=== PATIENT | female | born 1970 | race Caucasian/White ===

== ENCOUNTER 2016-07-16 20:11 | Emergency (ER) | payer OTHER ==
[2016-07-16 20:25] VITALS: RESP 18
[2016-07-16 21:12] LABS: Basophils # (A) 0.2 k/uL (0-0.2); Basophils % (A) 1 %; CH 31.4; CHCM 34.2; Eosinophils # (A) 0.1 k/uL (0-0.7); Eosinophils % (A) 1 %; HCT 42.5 % (34.0-46.0); HGB 14.4 gm/dL (11.4-16.0); Luc # (Auto) 0.12; Luc % (Auto) 1; Lymphocytes # (A) 2.2 k/uL (1.0-4.8); Lymphocytes % (A) 19 %; MCH 31.4 pg (25.0-35.0); MCV 92.3 fL (80.0-100.0); Mean Platelet Volume 8.8; Monocytes # (A) 0.4 k/uL (0-1.0); Monocytes % (A) 3 %; Neutrophils # (A) 8.7 k/uL (1.3-7.7); Neutrophils % (A) 75 %; RDW 13.3 % (11.5-15.5); WBC 11.6 k/uL (3.8-10.6); WBC (Perox) 11.99
[2016-07-16 21:14] LABS: Appearance,Urine Clear (Clear); Bilirubin,Urine Negative (Negative); Glucose,Urine (UA) Negative (Negative); Ketones,Urine Negative (Negative); Leukocyte Esterase,Urine Negative (Negative); Nitrite,Urine Negative (Negative); Protein,Urine Negative (Negative); UA Billing (MACRO vs. MICRO) CHEM; Urobilinogen,Urine <2.0 mg/dL (<2.0)
[2016-07-16 21:30] LABS: ALT 22 U/L (9-52); AST 22 U/L (14-36); Alkaline Phosphatase 70 U/L (38-126); Amylase 58 U/L (30-110); Anion Gap 15 mmol/L; Blood Urea Nitrogen 10 mg/dL (7-17); Calcium 10.2 mg/dL (8.4-10.2); Carbon Dioxide 23 mmol/L (22-30); Chloride 102 mmol/L (98-107); Glucose 98 mg/dL (74-99); Non-African American GFR(MDRD) >60 (>60 ml/min/1.73 sqM); Potassium 3.6 mmol/L (3.5-5.1); Sodium 140 mmol/L (137-145); Total Protein 7.9 g/dL (6.3-8.2)
[2016-07-16 21:32] LABS: Specific Gravity,Urine 1.005 (1.001-1.035)
--- NOTE | 2016-07-16 21:35 | ED ---
Abdominal Pain HPI - General Chief Complaint: Abdominal Pain Stated Complaint: Side Pain Time Seen by Provider: 07/16/16 20:59 Source: patient Mode of arrival: ambulatory Limitations: no limitations - History of Present Illness Initial Comments: This patient is a 46-year-old woman who presents to be evaluated for intermittent right flank and right upper quadrant abdominal pains that 1 going on for many months. She states that she was seen a couple times about this at a clinic, having her urine checked. The patient states that she believes that she was seen in either April or May. Patient indicates the pain is sharp , moderate, usually lasts from minutes to a few hours but resolves. She denies any associated symptoms other than having some intermittent vaginal spotting. The patient does have an appointment coming up in early August with ground support equipment mechanic , and states that her last and ecology point was many years ago. Patient denies any nausea or vomiting, change in bowel movements, or any other urinary type symptoms. MD Complaint: abdominal pain -: month(s) Location: RUQ, R flank Radiation: none Severity: moderate Quality: aching Consistency: intermittent Improves With: nothing Worsens With: nothing Associated Symptoms: other (Vaginal spotting) - Related Data Home Medications Medication Instructions Recorded Confirmed Nexium (Unknown Dose) 1 tab PO DAILY PRN 07/16/16 07/16/16 Ranitidine (Unknown Dose) 1 tab PO DAILY PRN 07/16/16 07/16/16 Sodium Bicarbonate (Unknown Dose) 1 tab PO DAILY PRN 07/16/16 07/16/16 Trazodone (Unknown Dose) 1 tab PO DAILY PRN 07/16/16 07/16/16 Allergies Allergy/AdvReac Type Severity Reaction Status Date / Time No Known Allergies Allergy Verified 07/16/16 21:02 Review of Systems ROS Statement: Those systems with pertinent positive or pertinent negative responses have been documented in the HPI. ROS Other: All systems not noted in ROS Statement are negative. Constitutional: Denies: fever, chills Respiratory: Denies: cough, dyspnea Cardiovascular: Denies: chest pain Gastrointestinal: Reports: as per HPI, abdominal pain. Denies: nausea, vomiting , diarrhea, constipation, melena, hematochezia Genitourinary: Reports: as per HPI, abnormal menses. Denies: urgency, dysuria, frequency, hematuria, discharge Musculoskeletal: Denies: back pain Skin: Denies: rash Neurological: Denies: headache, weakness, numbness Past Medical History Past Medical History: No Reported History History of Any Multi-Drug Resistant Organisms: None Reported Past Surgical History: Section Additional Past Surgical History / Comment(s): nasal repair Past Psychological History: Anxiety, Depression Smoking Status: Current every day smoker Past Alcohol Use History: Rare Past Drug Use History: None Reported General Exam Limitations: no limitations General appearance: alert, in no apparent distress Head exam: Present: atraumatic, normocephalic Eye exam: Present: normal appearance. Absent: scleral icterus, conjunctival injection ENT exam: Present: normal oropharynx Neck exam: Present: normal inspection, full ROM Respiratory exam: Present: normal lung sounds bilaterally. Absent: respiratory distress, wheezes, rales, rhonchi, stridor Cardiovascular Exam: Present: regular rate, normal rhythm, normal heart sounds. Absent: systolic murmur, diastolic murmur, rubs, gallop GI/Abdominal exam: Present: soft, tenderness (Mild abdominal tenderness just to the right of the epigastric area. There is no rebound or guarding.), normal bowel sounds. Absent: distended, guarding, rebound, rigid, organomegaly, mass, pulsatile mass, hernia Extremities exam: Present: normal inspection, normal capillary refill. Absent: pedal edema, calf tenderness Back exam: Present: normal inspection. Absent: CVA tenderness (R), CVA tenderness (L) Neurological exam: Present: alert Skin exam: Present: warm, dry, intact, normal color. Absent: rash, cyanosis, diaphoretic, erythema, petechiae, pallor, mottled Course Vital Signs 07/16/16 07/16/16 07/16/16 20:21 22:00 23:48 Temperature 98.2 F Pulse Rate 87 88 78 Respiratory 18 18 18 Rate Blood Pressure 175/74 165/91 124/78 O2 Sat by Pulse 96 96 96 Oximetry Medical Decision Making - Lab Data Result diagrams: 07/16/16 21:04 07/16/16 21:04 Lab Results 07/16/16 07/16/16 07/16/16 Range/Units 21:04 21:04 21:04 WBC 11.6 H (3.8-10.6) k/uL RBC 4.60 (3.80-5.40) m/uL Hgb 14.4 (11.4-16.0) gm/dL Hct 42.5 (34.0-46.0) % MCV 92.3 (80.0-100.0) fL MCH 31.4 (25.0-35.0) pg MCHC 34.0 (31.0-37.0) g/dL RDW 13.3 (11.5-15.5) % Plt Count 272 (150-450) k/uL Neutrophils % 75 % Lymphocytes % 19 % Monocytes % 3 % Eosinophils % 1 % Basophils % 1 % Neutrophils # 8.7 H (1.3-7.7) k/uL Lymphocytes # 2.2 (1.0-4.8) k/uL Monocytes # 0.4 (0-1.0) k/uL Eosinophils # 0.1 (0-0.7) k/uL Basophils # 0.2 (0-0.2) k/uL Sodium 140 (137-145) mmol/L Potassium 3.6 (3.5-5.1) mmol/L Chloride 102 (98-107) mmol/L Carbon Dioxide 23 (22-30) mmol/L Anion Gap 15 mmol/L BUN 10 (7-17) mg/dL Creatinine 0.63 (0.52-1.04) mg/dL Est GFR (MDRD) Af Amer >60 (>60 ml/min/1.73 sqM) Est GFR (MDRD) Non-Af >60 (>60 ml/min/1.73 sqM) Glucose 98 (74-99) mg/dL Calcium 10.2 (8.4-10.2) mg/dL Total Bilirubin 1.0 (0.2-1.3) mg/dL AST 22 (14-36) U/L ALT 22 (9-52) U/L Alkaline Phosphatase 70 (38-126) U/L Total Protein 7.9 (6.3-8.2) g/dL Albumin 4.9 (3.5-5.0) g/dL Amylase 58 (30-110) U/L Lipase 102 (23-300) U/L Urine Color Colorless Urine Appearance Clear (Clear) Urine pH 6.0 (5.0-8.0) Ur Specific [place] 1.005 (1.001-1.035) Urine Protein Negative (Negative) Urine Glucose (UA) Negative (Negative) Urine Ketones Negative (Negative) Urine Blood Negative (Negative) Urine Nitrate Negative (Negative) Urine Bilirubin Negative (Negative) Urine Urobilinogen <2.0 (<2.0) mg/dL Ur Leukocyte Esterase Negative (Negative) Disposition Clinical Impression: Abdominal pain Disposition: HOME SELF-CARE Condition: Fair Instructions: Abdominal Pain (ED) Referrals: Sumeet Porter MD [Primary Care Provider] - 1-2 days
--- NOTE | 2016-07-16 23:54 | US ---
EXAMINATION TYPE: US abdomen limited DATE OF EXAM: 07/16/2016 11:38 PM COMPARISON: NONE CLINICAL HISTORY: Pain, Attention RUQ. EXAM MEASUREMENTS: Liver Length: 15.2 cm Gallbladder Wall: 0.2 cm CBD: 0.4 cm Right Kidney: 12.6 x 4.4 x 5.1 cm TECHNOLOGIST IMPRESSION: Pancreas: Tail obscured by overlying bowel gas, visualized portions wnl Liver: wnl Gallbladder: wnl Evidence for sonographic Mario's sign: No CBD: wnl Right Kidney: No hydronephrosis or masses seen IMPRESSION: Negative right upper quadrant abdominal sonogram. No gallstones or dilated ducts.
--- NOTE | 2016-07-17 01:40 | CT ---
EXAM: CT Abdomen and Pelvis Without Intravenous Contrast. CLINICAL HISTORY: Reason: Pain TECHNIQUE: Axial computed tomography images of the abdomen and pelvis without intravenous contrast. CTDI is 5.7 mGy and DLP is 255.4 mGy-cm COMPARISON: No relevant prior studies available. FINDINGS: Limitations: Absent IV and oral contrast limit evaluation. Lower thorax: Mild bibasilar atelectasis identified. ABDOMEN: Liver: Unremarkable. Gallbladder and bile ducts: Unremarkable. No calcified stones. No ductal dilation. Pancreas: Unremarkable. No ductal dilation. Spleen: Unremarkable. No splenomegaly. Adrenals: Unremarkable. No mass. Kidneys and ureters: There is punctate calcification in the right mid and lower kidney best seen on coronal image. 2 coarse calcification in the lower left kidney. No ureteral calcification or dilatation. Stomach and bowel: Normal appendix. No focal small bowel dilatation. There is a discrete air-filled structure adjacent to the descending portion of the duodenum likely duodenal diverticulum. Few scattered diverticula. Appendix: See above. PELVIS: Bladder: Decompressed urinary bladder. No stones. Reproductive: Retroverted uterus. ABDOMEN and PELVIS: Intraperitoneal space: No free fluid. No free air. Bones/joints: No acute fracture. No dislocation. Soft tissues: Unremarkable. Vasculature: Unremarkable. No abdominal aortic aneurysm. Lymph nodes: Unremarkable. No enlarged lymph nodes. Other findings: Mild retained stool. IMPRESSION: Nonspecific bowel gas pattern with mild retained stool. Mild diverticulosis. No CT evidence for appendicitis or diverticulitis. Bilateral nonobstructing renal calculi.
[2016-07-17] MEDS ORDERED: MAGNESIUM CITRATE 296 ML BOTTLE PO ONE (02:01)
[2016-07-17 02:19] VITALS: BP 142/73; PULSE 77; TEMP 98.1
== END 2016-07-17 02:19 | disposition home or self-care (01) ==
LOC: EC 20:11
DX: R10.13 Epigastric pain (principal); R10.11 Right upper quadrant pain; N92.0 Excessive and frequent menstruation with regular cycle; F17.200 Nicotine dependence, unspecified, uncomplicated
CPT/HCPCS: 36415; 74176; 76705; 80053; 81003; 82150; 83690; 85025; 99284

== ENCOUNTER → 2016-08-28 | Outpatient (CLI) | payer OTHER ==
--- NOTE | 2016-08-28 15:43 | NM ---
EXAMINATION TYPE: NM hepatobiliary w EF DATE OF EXAM: 08/28/2016 3:12 PM COMPARISON: CT abdomen pelvis 17 July 2016 HISTORY: Abdominal pain TECHNIQUE: After the intravenous administration of 5.4 mCi Tc 99m Mebrofenin hepatobiliary scintigrap hy is performed. Immediate images post injection. FINDINGS: There is satisfactory initial accumulation of tracer by the liver. The gallbladder is visualized wit hin 18 minutes. The small bowel activity is noted within 14 minutes. At one hour 8 ounces of oral e nsure plus is given to mimic CCK and gallbladder ejection fraction is calculated at 76 %, in the norm al range. Therefore there is no scintigraphic evidence of cystic or common bile duct obstruction to suggest acute cholecystitis or gallbladder dyskinesia. IMPRESSION: Exam is within normal limits.
== END | disposition home or self-care (01) ==
LOC: RADNMMAIN 13:04
PROVIDERS: ATTEND Family Medicine
DX: R10.9 Unspecified abdominal pain (principal)
CPT/HCPCS: 78226; A9537

== ENCOUNTER → 2017-02-05 | Outpatient (CLI) | payer OTHER ==
--- NOTE | 2017-02-06 11:22 | MM ---
Reason for exam: screening (asymptomatic). Last mammogram was performed 3 years and 3 months ago. History: Family history of breast cancer in grandmother at age 20 and breast cancer in aunt at age 40. Physical Findings: A clinical breast exam by your physician is recommended on an annual basis and results should be correlated with mammographic findings. MG 3D Screening Mammo W/Cad Bilateral CC and MLO view(s) were taken. Prior study comparison: November 09, 2013, mammogram. January 26, 2011, mammogram. The breast tissue is heterogeneously dense. This may lower the sensitivity of mammography. There is chronic nodularity bilaterally. There is no dominant lesion. No significant changes when compared with prior studies. ASSESSMENT: Benign, BI-RAD 2 RECOMMENDATION: Routine screening mammogram of both breasts in 1 year.
== END | disposition home or self-care (01) ==
LOC: RADMAMWWP 11:21
PROVIDERS: ATTEND Family Medicine
DX: Z12.31 Encounter for screening mammogram for malignant neoplasm of breast (principal)
CPT/HCPCS: 77063; G0202

== ENCOUNTER → 2017-07-16 | Outpatient (CLI) | payer OTHER ==
--- NOTE | 2017-07-17 08:19 | US ---
EXAMINATION TYPE: US pelvic complete DATE OF EXAM: 07/16/2017 COMPARISON: NONE CLINICAL HISTORY: R10.2 Pelvic Perineal Pain. Pelvic pain TECHNIQUE: Transabdominal (TA). Transabdominal sonographic images of the pelvis were acquired. Date of LMP: 06/13/2017 EXAM MEASUREMENTS: Uterus: 11.4 x 5.3 x 5.7 cm Endometrial Stripe: 0.7 cm Right Ovary: 2.9 x 1.5 x 2.0 cm Left Ovary: 2.3 x 1.4 x 1.8 cm 1. Uterus: Anteverted Nabothian cysts seen. 2. Endometrium: wnl 3. Right Ovary: wnl 4. Left Ovary: wnl 5. Bilateral Adnexa: wnl 6. Posterior cul-de-sac: wnl IMPRESSION: No significant abnormality is evident.
== END | disposition home or self-care (01) ==
LOC: RADUSMAIN 17:48
PROVIDERS: ATTEND Physician Assistant
DX: R10.2 Pelvic and perineal pain (principal)
CPT/HCPCS: 76856

== ENCOUNTER → 2018-05-15 | Outpatient (CLI) | payer OTHER ==
--- NOTE | 2018-05-16 09:03 | XR ---
EXAMINATION TYPE: XR chest 2V DATE OF EXAM: 05/15/2018 COMPARISON: 12/21/2015 TECHNIQUE: PA and lateral views submitted. HISTORY: Cough FINDINGS: The lungs are clear and there is no pneumothorax, pleural effusion, or focal pneumonia. IMPRESSION: 1. No acute process.
== END | disposition home or self-care (01) ==
LOC: RADXRMAIN 15:54
PROVIDERS: ATTEND Physician Assistant
DX: F17.200 Nicotine dependence, unspecified, uncomplicated (principal)
CPT/HCPCS: 71046

== ENCOUNTER 2018-06-23 11:18 | Emergency (ER) | payer OTHER ==
[2018-06-23 11:37] VITALS: TEMP 99
[2018-06-23] MEDS ORDERED: PANTOPRAZOLE 40 MG/10 ML VIAL IVP STA (12:12)
[2018-06-23] MEDS ORDERED: KETOROLAC 30 MG/ML 1 ML VIAL IVP STA (12:12)
[2018-06-23] MEDS ORDERED: SODIUM CHLORIDE 0.9% 1,000 ML IV STA ×2 (12:12)
[2018-06-23] MEDS ORDERED: ONDANSETRON 4 MG/2 ML VIAL IVP STA (12:12)
[2018-06-23] MEDS ORDERED: MORPHINE SULFATE 4 MG/ML SYRINGE IVP STA ×2 (12:12→15:18)
[2018-06-23 13:10] VITALS: RESP 16
[2018-06-23 13:43] LABS: Basophils % (A) 0 %; Eosinophils % (A) 0 %; HCT 44.7 % (34.0-46.0); HGB 14.9 gm/dL (11.4-16.0); Lymphocytes # (A) 1.3 k/uL (1.0-4.8); Lymphocytes % (A) 12 %; MCH 31.5 pg (25.0-35.0); MCHC 33.4 g/dL (31.0-37.0); MCV 94.3 fL (80.0-100.0); Mean Platelet Volume 8.6; Monocytes # (A) 0.3 k/uL (0-1.0); Monocytes % (A) 2 %; Neutrophils # (A) 9.6 k/uL (1.3-7.7); Neutrophils % (A) 85 %; Platelet Count 272 k/uL (150-450); RBC 4.74 m/uL (3.80-5.40); RDW 13.6 % (11.5-15.5); WBC 11.3 k/uL (3.8-10.6)
[2018-06-23 13:57] LABS: ALT 27 U/L (9-52); AST 24 U/L (14-36); Albumin 5.1 g/dL (3.5-5.0); Alkaline Phosphatase 75 U/L (38-126); Amylase 62 U/L (30-110); Anion Gap 11 mmol/L; Blood Urea Nitrogen 9 mg/dL (7-17); Calcium 10.5 mg/dL (8.4-10.2); Carbon Dioxide 24 mmol/L (22-30); Chloride 107 mmol/L (98-107); Glucose 97 mg/dL (74-99); Lipase 108 U/L (23-300); Potassium 4.4 mmol/L (3.5-5.1); Sodium 142 mmol/L (137-145); Total Bilirubin 0.7 mg/dL (0.2-1.3); Total Protein 8.5 g/dL (6.3-8.2)
--- NOTE | 2018-06-23 13:58 | ED ---
Abdominal Pain HPI - General Chief Complaint: Abdominal Pain Stated Complaint: Vaginal Bleeding, Abd Pain Time Seen by Provider: 06/23/18 11:42 Source: patient, RN notes reviewed, old records reviewed Mode of arrival: ambulatory Limitations: no limitations - History of Present Illness Initial Comments: 48-year-old female comes emergency Department multiple complaints. She states that she's had distention, concern for vaginal bleeding. Patient states that she was sent by medics breath. She is having chronic GI issues for quite some time. She denies associated back pain. She reports pain intermittently over RUQ. Patient has normal bowel movements. - Related Data Home Medications Medication Instructions Recorded Confirmed Polyethylene Glycol 3350 [Miralax] 17 gram PO DAILY 06/23/18 06/23/18 Allergies Allergy/AdvReac Type Severity Reaction Status Date / Time No Known Allergies Allergy Verified 06/23/18 12:29 Review of Systems ROS Statement: Those systems with pertinent positive or pertinent negative responses have been documented in the HPI. ROS Other: All systems not noted in ROS Statement are negative. Past Medical History Past Medical History: No Reported History History of Any Multi-Drug Resistant Organisms: None Reported Past Surgical History: Section Additional Past Surgical History / Comment(s): nasal repair Past Psychological History: Anxiety, Depression Smoking Status: Current every day smoker Past Alcohol Use History: Rare Past Drug Use History: None Reported General Exam - General Exam Comments Initial Comments: This is a 48 year old female, no distress. Limitations: no limitations General appearance: alert, in no apparent distress Head exam: Present: atraumatic, normocephalic, normal inspection Eye exam: Present: normal appearance, PERRL, EOMI. Absent: scleral icterus, conjunctival injection, periorbital swelling ENT exam: Present: normal exam, mucous membranes moist Neck exam: Present: normal inspection. Absent: tenderness, meningismus, lymphadenopathy Respiratory exam: Present: normal lung sounds bilaterally. Absent: respiratory distress, wheezes, rales, rhonchi, stridor Cardiovascular Exam: Present: regular rate, normal rhythm, normal heart sounds. Absent: systolic murmur, diastolic murmur, rubs, gallop, clicks GI/Abdominal exam: Present: soft, normal bowel sounds. Absent: distended, tenderness, guarding, rebound, rigid Extremities exam: Present: normal inspection, full ROM, normal capillary refill. Absent: tenderness, pedal edema, joint swelling, calf tenderness Back exam: Present: normal inspection Neurological exam: Present: alert, oriented X3, CN II-XII intact Psychiatric exam: Present: normal affect, normal mood Skin exam: Present: warm, dry, intact, normal color. Absent: rash Course Vital Signs 06/23/18 06/23/18 06/23/18 11:33 13:06 13:09 Temperature 99 F Pulse Rate 87 81 Respiratory 18 16 Rate Blood Pressure 152/90 159/91 O2 Sat by Pulse 97 100 100 Oximetry 06/23/18 06/23/18 06/23/18 13:30 14:00 14:30 Temperature Pulse Rate 86 78 89 Respiratory Rate Blood Pressure 159/91 129/90 128/99 O2 Sat by Pulse 97 96 99 Oximetry 06/23/18 16:37 Temperature Pulse Rate 86 Respiratory 16 Rate Blood Pressure 130/91 O2 Sat by Pulse 100 Oximetry Medical Decision Making - Medical Decision Making Patient is a 48 year old female with multiple complaints, including prolonged vaginal bleeding, intermittent RUQ abdominal pain. She appears quite anxious on initial exam. Patient has normal lab work, including hemoglobin. Pelvic exam shows vaginal bleeding. No tederness. She does follow up with obgyn. She has appt to follow up with PCP next week. Discussed RUQ pain may be related to biliary colic. Patient advised to get HIDA scan. Discussed close follow with PCP. - Lab Data Result diagrams: 06/23/18 12:20 06/23/18 12:20 Lab Results 06/23/18 06/23/18 06/23/18 Range/Units 12:20 12:20 12:20 WBC 11.3 H (3.8-10.6) k/uL RBC 4.74 (3.80-5.40) m/uL Hgb 14.9 (11.4-16.0) gm/dL Hct 44.7 (34.0-46.0) % MCV 94.3 (80.0-100.0) fL MCH 31.5 (25.0-35.0) pg MCHC 33.4 (31.0-37.0) g/dL RDW 13.6 (11.5-15.5) % Plt Count 272 (150-450) k/uL Neutrophils % 85 % Lymphocytes % 12 % Monocytes % 2 % Eosinophils % 0 % Basophils % 0 % Neutrophils # 9.6 H (1.3-7.7) k/uL Lymphocytes # 1.3 (1.0-4.8) k/uL Monocytes # 0.3 (0-1.0) k/uL Eosinophils # 0.0 (0-0.7) k/uL Basophils # 0.0 (0-0.2) k/uL PT 9.4 (9.0-12.0) sec INR 0.9 (<1.2) APTT 20.2 L (22.0-30.0) sec Sodium 142 (137-145) mmol/L Potassium 4.4 (3.5-5.1) mmol/L Chloride 107 (98-107) mmol/L Carbon Dioxide 24 (22-30) mmol/L Anion Gap 11 mmol/L BUN 9 (7-17) mg/dL Creatinine 0.52 (0.52-1.04) mg/dL Est GFR (CKD-EPI)AfAm >90 (>60 ml/min/1.73 sqM) Est GFR (CKD-EPI)NonAf >90 (>60 ml/min/1.73 sqM) Glucose 97 (74-99) mg/dL Calcium 10.5 H (8.4-10.2) mg/dL Total Bilirubin 0.7 (0.2-1.3) mg/dL AST 24 (14-36) U/L ALT 27 (9-52) U/L Alkaline Phosphatase 75 (38-126) U/L Total Protein 8.5 H (6.3-8.2) g/dL Albumin 5.1 H (3.5-5.0) g/dL Amylase 62 (30-110) U/L Lipase 108 (23-300) U/L Urine Color Urine Appearance (Clear) Urine pH (5.0-8.0) Ur Specific [place] (1.001-1.035) Urine Protein (Negative) Urine Glucose (UA) (Negative) Urine Ketones (Negative) Urine Blood (Negative) Urine Nitrite (Negative) Urine Bilirubin (Negative) Urine Urobilinogen (<2.0) mg/dL Ur Leukocyte Esterase (Negative) Urine RBC (0-5) /hpf Urine WBC (0-5) /hpf Ur Squamous Epith Cells (0-4) /hpf Urine Bacteria (None) /hpf Chlamydia Source Chlamydia DNA (PCR) (Neg,Equiv) N. gonorrhoeae Source N.gonorrhoeae DNA Probe (Neg,Equiv) Trichomonas Ag (Rapid) (Negative) 06/23/18 06/23/18 06/23/18 Range/Units 12:20 16:38 16:38 WBC (3.8-10.6) k/uL RBC (3.80-5.40) m/uL Hgb (11.4-16.0) gm/dL Hct (34.0-46.0) % MCV (80.0-100.0) fL MCH (25.0-35.0) pg MCHC (31.0-37.0) g/dL RDW (11.5-15.5) % Plt Count (150-450) k/uL Neutrophils % % Lymphocytes % % Monocytes % % Eosinophils % % Basophils % % Neutrophils # (1.3-7.7) k/uL Lymphocytes # (1.0-4.8) k/uL Monocytes # (0-1.0) k/uL Eosinophils # (0-0.7) k/uL Basophils # (0-0.2) k/uL PT (9.0-12.0) sec INR (<1.2) APTT (22.0-30.0) sec Sodium (137-145) mmol/L Potassium (3.5-5.1) mmol/L Chloride (98-107) mmol/L Carbon Dioxide (22-30) mmol/L Anion Gap mmol/L BUN (7-17) mg/dL Creatinine (0.52-1.04) mg/dL Est GFR (CKD-EPI)AfAm (>60 ml/min/1.73 sqM) Est GFR (CKD-EPI)NonAf (>60 ml/min/1.73 sqM) Glucose (74-99) mg/dL Calcium (8.4-10.2) mg/dL Total Bilirubin (0.2-1.3) mg/dL AST (14-36) U/L ALT (9-52) U/L Alkaline Phosphatase (38-126) U/L Total Protein (6.3-8.2) g/dL Albumin (3.5-5.0) g/dL Amylase (30-110) U/L Lipase (23-300) U/L Urine Color Yellow Urine Appearance Clear (Clear) Urine pH 5.5 (5.0-8.0) Ur Specific [place] 1.004 (1.001-1.035) Urine Protein Trace H (Negative) Urine Glucose (UA) Negative (Negative) Urine Ketones Negative (Negative) Urine Blood Large H (Negative) Urine Nitrite Negative (Negative) Urine Bilirubin Negative (Negative) Urine Urobilinogen <2.0 (<2.0) mg/dL Ur Leukocyte Esterase Trace H (Negative) Urine RBC 20 H (0-5) /hpf Urine WBC 1 (0-5) /hpf Ur Squamous Epith Cells 1 (0-4) /hpf Urine Bacteria Occasional H (None) /hpf Chlamydia Source Vagina Chlamydia DNA (PCR) Negative (Neg,Equiv) N. gonorrhoeae Source Vagina N.gonorrhoeae DNA Probe Negative (Neg,Equiv) Trichomonas Ag (Rapid) (Negative) 06/23/18 Range/Units 16:38 WBC (3.8-10.6) k/uL RBC (3.80-5.40) m/uL Hgb (11.4-16.0) gm/dL Hct (34.0-46.0) % MCV (80.0-100.0) fL MCH (25.0-35.0) pg MCHC (31.0-37.0) g/dL RDW (11.5-15.5) % Plt Count (150-450) k/uL Neutrophils % % Lymphocytes % % Monocytes % % Eosinophils % % Basophils % % Neutrophils # (1.3-7.7) k/uL Lymphocytes # (1.0-4.8) k/uL Monocytes # (0-1.0) k/uL Eosinophils # (0-0.7) k/uL Basophils # (0-0.2) k/uL PT (9.0-12.0) sec INR (<1.2) APTT (22.0-30.0) sec Sodium (137-145) mmol/L Potassium (3.5-5.1) mmol/L Chloride (98-107) mmol/L Carbon Dioxide (22-30) mmol/L Anion Gap mmol/L BUN (7-17) mg/dL Creatinine (0.52-1.04) mg/dL Est GFR (CKD-EPI)AfAm (>60 ml/min/1.73 sqM) Est GFR (CKD-EPI)NonAf (>60 ml/min/1.73 sqM) Glucose (74-99) mg/dL Calcium (8.4-10.2) mg/dL Total Bilirubin (0.2-1.3) mg/dL AST (14-36) U/L ALT (9-52) U/L Alkaline Phosphatase (38-126) U/L Total Protein (6.3-8.2) g/dL Albumin (3.5-5.0) g/dL Amylase (30-110) U/L Lipase (23-300) U/L Urine Color Urine Appearance (Clear) Urine pH (5.0-8.0) Ur Specific [place] (1.001-1.035) Urine Protein (Negative) Urine Glucose (UA) (Negative) Urine Ketones (Negative) Urine Blood (Negative) Urine Nitrite (Negative) Urine Bilirubin (Negative) Urine Urobilinogen (<2.0) mg/dL Ur Leukocyte Esterase (Negative) Urine RBC (0-5) /hpf Urine WBC (0-5) /hpf Ur Squamous Epith Cells (0-4) /hpf Urine Bacteria (None) /hpf Chlamydia Source Chlamydia DNA (PCR) (Neg,Equiv) N. gonorrhoeae Source N.gonorrhoeae DNA Probe (Neg,Equiv) Trichomonas Ag (Rapid) Negative (Negative) - Radiology Data Radiology results: report reviewed CT shows evidence of prominece cervix, correlate clinically. Disposition Clinical Impression: Dysfunctional uterine bleeding, Biliary colic Disposition: HOME SELF-CARE Condition: Good Instructions (If sedation given, give patient instructions): Dysfunctional Uterine Bleeding (ED), Biliary Colic (ED) Additional Instructions: Patient is advised to have close follow-up with primary care physician. Patient should return to the emergency department if any alarming signs or symptoms occur. Is patient prescribed a controlled substance at d/c from ED?: No Referrals: None,Stated [Primary Care Provider] - 1-2 days Jean-Pierre Fair MD [STAFF PHYSICIAN] - 1-2 days Vanessa Quintero MD [STAFF PHYSICIAN] - 1-2 days Israel Jaimes MD [STAFF PHYSICIAN] - 1-2 days Time of Disposition: 16:06
[2018-06-23 14:01] LABS: INR 0.9 (<1.2); Prothrombin Time 9.4 sec (9.0-12.0)
[2018-06-23 14:15] LABS: Appearance,Urine Clear (Clear); Bacteria,Urine Occasional /hpf; Bilirubin,Urine Negative (Negative); Blood,Urine Large (Negative); Color,Urine Yellow; Glucose,Urine (UA) Negative (Negative); Ketones,Urine Negative (Negative); Leukocyte Esterase,Urine Trace (Negative); Nitrite,Urine Negative (Negative); PH, Urine 5.5 (5.0-8.0); Protein,Urine Trace (Negative); RBC,Urine 20 /hpf (0-5); Specific Gravity,Urine 1.004 (1.001-1.035); Squamous Epithelial Cell,Urine 1 /hpf (0-4); Urobilinogen,Urine <2.0 mg/dL (<2.0); WBC,Urine 1 /hpf (0-5)
[2018-06-23 14:16] LABS: Partial Thromboplastin Time 20.2 sec (22.0-30.0)
[2018-06-23] MEDS ORDERED: LORazepam 2 MG/ML INJ IV STA (14:33)
--- NOTE | 2018-06-23 14:45 | CT ---
EXAMINATION TYPE: CT abdomen pelvis w con DATE OF EXAM: 06/23/2018 COMPARISON: 07/17/2016 HISTORY: Generalized pain with vaginal bleeding CT DLP: 660.2 mGycm CONTRAST: CT scan of the abdomen and pelvis is performed without Oral Contrast and with IV Contrast, patient in jected with 100 mL of Isovue 300. FINDINGS: LUNG BASES-: No visible nodule. No infiltrate. LIVER/GB: No calcified gallstones. No space occupying hepatic lesion. Biliary tree is of normal ca liber. PANCREAS: No inflammation. No distinct mass. SPLEEN: No splenic enlargement. No lesion seen. ADRENALS: No nodule. No thickening. KIDNEYS/BLADDER: No hydronephrosis. Nonobstructing left-sided nephrolithiasis. No distinct renal mas s. Urinary bladder grossly unremarkable. BOWEL: Normal appendix. Normal bowel caliber. No inflammation. GENITAL ORGANS: Prominence of the cervix. Correlate clinically. Small left ovarian follicular cyst. LYMPH NODES: No greater than 1cm abdominal or pelvic lymph nodes are appreciated. AORTA: No significant abnormality. OSSEOUS STRUCTURES: No significant abnormality is seen. OTHER: No significant additional abnormality is seen. IMPRESSION: 1. Prominence of the cervix. Correlate clinically. Small left ovarian follicular cyst.
[2018-06-23] MEDS ORDERED: ACET/COD 300 MG/30 MG STARTER PACK 6 TAB BTL PO STA (16:06)
[2018-06-23 16:38] VITALS: BP 130/91; PULSE 86
[2018-06-24 13:48] LABS: N. gonorrhoeae,PCR Negative (Neg,Equiv); Neisseria Source Vagina
[2018-06-24 13:51] LABS: C. trachomatis,PCR Negative (Neg,Equiv); Chlamydia trachomatis Source Vagina
== END 2018-06-23 16:40 | disposition home or self-care (01) ==
LOC: EC 11:18
DX: K80.50 Calculus of bile duct without cholangitis or cholecystitis without obstruction (principal); N93.8 Other specified abnormal uterine and vaginal bleeding; F17.200 Nicotine dependence, unspecified, uncomplicated; Z79.899 Other long term (current) drug therapy; Z53.20 Procedure and treatment not carried out because of patient's decision for unspecified reasons
CPT/HCPCS: 99285; 96374; 96375 ×3; 96376; 96361 ×4; 36415; 80053; 82150; 83690; 85025; 85610; 85730; 81001; 87808; 87491; 87591; 87070; 74177; J2270; J2405; J1885; C9113; Q9967; 87205

== ENCOUNTER → 2018-07-31 | Outpatient (CLI) | payer OTHER ==
--- NOTE | 2018-07-31 09:20 | CT ---
EXAMINATION TYPE: CT sinus wo con DATE OF EXAM: 07/31/2018 COMPARISON: NONE HISTORY: Sinusitis CT DLP: 673.7 mGycm. Automated Exposure Control for Dose Reduction was Utilized. TECHNIQUE: CT scan of the sinuses is performed without contrast, axial images are obtained, coronal r eformatted images are also reviewed. FINDINGS: Periapical lucency is seen surrounding to posterior right maxillary teeth relating to under lying dental disease. No cortical breakthrough is noted. There is rightward nasal septal deviation an d a small 3 mm rightward nasal septal spur. The paranasal sinuses however are well aerated as are the visualized portions of the mastoid air cells other than very scant right maxillary dependent mucosal thickening on the coronal images. There is very mild left inferior nasal turbinate mucosal hypertrop hy. No Pk cells or anastasiia bullosa. Bony orbits are intact. Frontal recesses are patent. Temporomandib ular joints are symmetric. Globes are also symmetric and lenses are in place. Visualized portion of t he brain demonstrates mild cerebral atrophy with sulcal prominence however exam is not optimized for evaluation of intracranial structures. IMPRESSION: 1. There is scant mucosal thickening of the right inferior maxillary sinus otherwise the paranasal si nuses are well aerated. 2. Rightward nasal septal deviation and small 3 mm rightward nasal septal spur. 3. Mild left inferior nasal turbinate mucosal hypertrophy.
== END ==
LOC: RADCTMAIN 08:32
PROVIDERS: ATTEND Otolaryngology
DX: J34.89 Other specified disorders of nose and nasal sinuses (principal); J34.2 Deviated nasal septum; J34.3 Hypertrophy of nasal turbinates
CPT/HCPCS: 70486

== ENCOUNTER → 2018-09-04 | Outpatient (CLI) | payer OTHER ==
--- NOTE | 2018-09-04 10:50 | NM ---
EXAMINATION TYPE: NM hepatobiliary w EF DATE OF EXAM: 09/04/2018 , CT 06/23/2017 COMPARISON: Prior exam dated 08/28/2016 HISTORY: Right upper quadrant pain TECHNIQUE: After the intravenous administration of 4.5 mCi Tc 99m Mebrofenin hepatobiliary scintigrap hy is performed. Immediate images post injection. FINDINGS: There is satisfactory initial accumulation of tracer by the liver, question small photopenic area in the left lobe liver hour there is no corresponding abnormality seen on CT. The gallbladder is visual ized within 30 minutes. The small bowel activity is noted within 18 minutes. At one hour 8 ounces o f oral ensure plus is given to mimic CCK and gallbladder ejection fraction is calculated at 66 %, in the normal range. Therefore there is no scintigraphic evidence of cystic or common bile duct obstruc tion to suggest acute cholecystitis or gallbladder dyskinesia. IMPRESSION: Normal gallbladder ejection fraction. Questionable photopenic region within the left of t he liver without corresponding abnormality seen on CT dated 06/23/2018. Ultrasound liver could be perf ormed for additional evaluation.
== END | disposition home or self-care (01) ==
LOC: RADNMMAIN 07:05
PROVIDERS: ATTEND Family Medicine
DX: R10.11 Right upper quadrant pain (principal)
CPT/HCPCS: 78226; A9537

== ENCOUNTER → 2018-09-19 | Outpatient (CLI) | payer OTHER ==
--- NOTE | 2018-09-19 13:14 | US ---
EXAMINATION TYPE: US abdomen limited DATE OF EXAM: 09/19/2018 COMPARISON: NONE CLINICAL HISTORY: R94.5 Abn liver function. EXAM MEASUREMENTS: Liver Length: 13.9 cm Gallbladder Wall: 0.2 cm CBD: 0.5 cm Right Kidney: 11.6 x 3.7 x 4.6 cm Pancreas: partially obscured by bowel gas, portions visualized wnl Liver: wnl Gallbladder: wnl Evidence for sonographic Mario's sign: no CBD: wnl Right Kidney: wnl IMPRESSION: No distinct abnormality seen.
== END | disposition home or self-care (01) ==
LOC: RADUSWWP 12:38
PROVIDERS: ATTEND Family Medicine
DX: R94.5 Abnormal results of liver function studies (principal)
CPT/HCPCS: 76705

== ENCOUNTER → 2019-03-26 | Outpatient (CLI) | payer BC ==
--- NOTE | 2019-03-27 07:00 | US ---
EXAMINATION TYPE: US thyroid st tissue head/neck DATE OF EXAM: 03/26/2019 COMPARISON: US 01/05/2014 CLINICAL HISTORY: E07.9 Disorder of Thyroid. Disorder of thyroid gland. GLAND SIZE: Right Lobe: 5.2 x 1.5 x 1.7 cm Overall Parenchyma: homogenous Left Lobe: 5.1 x 1.6 x 1.6 cm Overall Parenchyma: homogeneous Isthmus Thickness: 0.26 cm NODULES RIGHT: # of nodules measured on right: 1 1. 0.5 X 0.5 x 0.3 cm hypoechoic cystic nodule at the lower pole with well-defined margins. This n odule is wider than tall and shows peripheral vascularity. Prior size: none LEFT: # of nodules measured on left: 1 1. 0.4 X 0.5 x 0.2 cm hypoechoic solid nodule at the mid pole with poorly defined margins. This no dule is wider than tall and shows intranodular vascularity. Prior size: none ISTHMUS: # of nodules measured in the isthmus: 1 1. 0.9 X 0.6 x 0.3 cm hypoechoic solid nodule. This nodule is wider than tall and shows peripheral vascularity. Prior size: none Bilateral neck scanned. Neurologically normal lymph node seen lateral to right thyroid lobe measurin.4 x 0.5 x 0.3 cm. Morphologically normal lymph node seen lateral to left thyroid lobe measurin.1 x 0.6 x 0.3 cm. IMPRESSION: Small bilateral subcentimeter thyroid nodules. Surveillance exam could be performed in 12 months to the exam of 2013.
== END | disposition home or self-care (01) ==
LOC: RADUSWWP 17:01
PROVIDERS: ATTEND Family Medicine
DX: E04.2 Nontoxic multinodular goiter (principal)
CPT/HCPCS: 76536

== ENCOUNTER → 2020-04-04 | Outpatient (CLI) | payer BC ==
[2020-04-04 16:14] LABS: Basophils # (A) 0.1 k/uL (0-0.2); Basophils % (A) 1 %; Eosinophils # (A) 0.1 k/uL (0-0.7); Eosinophils % (A) 1 %; HCT 40.8 % (34.0-46.0); HGB 13.5 gm/dL (11.4-16.0); Lymphocytes # (A) 1.9 k/uL (1.0-4.8); Lymphocytes % (A) 29 %; MCHC 33.1 g/dL (31.0-37.0); MCV 93.6 fL (80.0-100.0); Mean Platelet Volume 8.7; Monocytes # (A) 0.3 k/uL (0-1.0); Monocytes % (A) 5 %; Neutrophils # (A) 4.3 k/uL (1.3-7.7); Neutrophils % (A) 64 %; Platelet Count 248 k/uL (150-450); RBC 4.36 m/uL (3.80-5.40); RDW 13.2 % (11.5-15.5); WBC 6.7 k/uL (3.8-10.6)
[2020-04-04 16:21] LABS: African American GFR (CKD) >90 (>60 ml/min/1.73 sqM); Anion Gap 5 mmol/L; Blood Urea Nitrogen 11 mg/dL (7-17); Carbon Dioxide 31 mmol/L (22-30); Chloride 104 mmol/L (98-107); Glucose 82 mg/dL (74-99); Non-African American GFR(CKD) >90 (>60 ml/min/1.73 sqM); Potassium 4.7 mmol/L (3.5-5.1); Sodium 140 mmol/L (137-145)
== END | disposition home or self-care (01) ==
LOC: LABPAT 14:50
PROVIDERS: ATTEND Obstetrics & Gynecology
DX: Z01.818 Encounter for other preprocedural examination (principal); N81.4 Uterovaginal prolapse, unspecified
CPT/HCPCS: 36415; 80051; 82565; 82947; 84520; 85025; 87086

== ENCOUNTER 2020-04-15 09:21 | Day surgery (SDC) | payer BC ==
--- NOTE | 2020-03-31 14:29 | HP ---
HISTORY AND PHYSICAL This is a 49-year-old white female 6, para 5-0-1-5, who presented with increasing pelvic pressure and bulge per perineal body. She denies bladder or rectal symptoms. She states that the bulge has increasingly become worse, and now it is sitting at the verge of her undergarments causing irritation and pain. She denies dyspareunia. No unusual vaginal bleeding. REVIEW OF SYSTEMS: Otherwise negative. PAST MEDICAL HISTORY: Significant for hypertension, thyroid disease, irritable bowel syndrome, stomach ulcers, and kidney problems. PAST SURGICAL HISTORY: section x1, followed by 4 successful VBACs. CURRENT MEDICATIONS: Colace 100 mg once daily, vitamin D daily. ALLERGIES: None known. FAMILY HISTORY: Significant for atrial fib fibrillation, congestive heart failure, multiple sclerosis, breast cancer, stroke, Alzheimer disease, colon cancer, thyroid disease, blood cancer, dementia. SOCIAL HISTORY: Patient is a former tobacco smoker, she is , she denies alcohol or drug use. REPRODUCTIVE HISTORY: section in 1985 followed by 4 successful vaginal deliveries in 1987, 1989, 1992, 1998. PHYSICAL EXAM: Patient is 149 pounds, blood pressure 126/74, 98% O2 saturation, afebrile. HEENT: Exam reveals no thyromegaly, no obvious cervical lymphadenopathy, good dentition. CHEST: Clear to auscultation in all varghese anteriorly and posteriorly. CARDIO: Exam reveals regular rate and rhythm with no murmur, click, or rub. Breasts are bilaterally symmetric to inspection with no masses on palpation, no breast tenderness, no skin changes, no nipple discharge, no adenopathy. GI: Exam reveals soft, nontender abdomen, no organosplenomegaly, no CVA tenderness. No evidence of herniorrhaphy. External genitalia are normal for age, no discharge, lesions, or odor. Pap smear is up to date and normal. Uterus is small, mobile, smooth, midline. There is a grade 3-4 uterine prolapse noted. No obvious cystocele or rectocele. Adnexa are negative to palpation, smooth, small, and mobile. Rectal exam reveals good sphincter tone, FIT negative stool. SKIN: exam is negative with no rashes, lesions, or areas of discoloration. NEUROLOGIC: Exam is also normal, patient is oriented x3 with intact insight and judgment. Normal mood and affect. IMPRESSION: Increasingly symptomatic grade 3-4 uterine prolapse. Option of pessary discussed and declined. PLAN: We will proceed with vaginal hysterectomy. The risks of surgery to include but not be exclusive of bleeding, infection, perforation or damage to bowel, bladder, ureters, or indeed any pelvic or abdominal organs is reviewed. The risk of transfusion is reviewed. The risk of aspiration, nerve damage, or other anesthetic complications is also discussed. The ACOG pamphlet on hysterectomy is given to the patient. All questions answered. MMODL / IJN: [id number] /
[2020-04-04 11:52] VITALS: BMI 28.3
[~2020-04-15 09:21] MED LIST: DEXAMETHASONE SOD PHOSPHATE 4 MG/ML 1 ML VIAL IV ONE; LIDOCAINE 1% (10MG/ML) FOR IV START INTRADERMA PRN; ONDANSETRON 4 MG/2 ML VIAL IVP ONE
[2020-04-15] MEDS ORDERED: LIDOCAINE 1% (10MG/ML) FOR IV START INTRADERMA ONE (10:20)
[2020-04-15] MEDS: LACTATED RINGERS 1,000 ML IV SCH ×4 (10:20→21:19)
[2020-04-15] MEDS ORDERED: MIDAZOLAM 2 MG/2 ML VIAL IV ONE (10:34)
[2020-04-15] MEDS ORDERED: VASOPRESSIN 20 UNIT/ML 1 ML VIAL SQ ONE (10:49)
[2020-04-15] MEDS ORDERED: BACITRACIN ZINC 500 UNIT/GM OINT 28.4 GM TUBE TOPICAL ONE (10:51)
[2020-04-15] MEDS ORDERED: LIDOCAINE 1% INJ 10MG/ML (20 ML MDV) ONE (10:59)
[2020-04-15] MEDS ORDERED: KETOROLAC 15 MG/ML 1 ML VIAL ONE (10:59)
[2020-04-15] MEDS ORDERED: ROCURONIUM 10 MG/ML (10 ML VIAL) IV ONE (10:59)
[2020-04-15] MEDS ORDERED: MIDAZOLAM 2 MG/2 ML VIAL ONE (10:59)
[2020-04-15] MEDS ORDERED: NEOSTIGMINE 1 MG/ML 10 ML VIAL ONE (10:59)
[2020-04-15] MEDS ORDERED: PROPOFOL 10 MG/ML 20 ML VIAL IV ONE (10:59)
[2020-04-15] MEDS ORDERED: GLYCOPYRROLATE 0.2 MG/ML 2 ML VIAL ONE (10:59)
[2020-04-15] MEDS ORDERED: fentaNYL (PF) 50 MCG/ML 2 ML AMP ONE (10:59)
[2020-04-15] MEDS ORDERED: HYDROmorphone (PF) 1 MG/ML ONE (10:59)
[2020-04-15] MEDS ORDERED: METOCLOPRAMIDE 5 MG/ML 2 ML VIAL IVP PRN (12:06)
[2020-04-15] MEDS ORDERED: diphenhydrAMINE 50 MG/ML 1 ML VIAL IVP PRN (12:06)
[2020-04-15] MEDS ORDERED: ZOLPIDEM 5 MG TAB PO PRN (12:06)
[2020-04-15] MEDS ORDERED: ONDANSETRON 4 MG/2 ML VIAL IVP PRN (12:06)
[2020-04-15] MEDS ORDERED: SIMETHICONE 80 MG CHEWABLE PO PRN (12:06)
[2020-04-15] MEDS ORDERED: IBUPROFEN 600 MG TAB PO PRN (12:06)
--- NOTE | 2020-04-15 12:06 | P.OP ---
Date of Procedure: 04/15/20 Preoperative Diagnosis: Uterine prolapse, symptomatic Postoperative Diagnosis: Normal-appearing ovaries bilaterally. Procedure(s) Performed: Vaginal hysterectomy Anesthesia: MICHAEL Surgeon: Kim Gillis Pile Trimmer #1: Ada Colbert Estimated Blood Loss (ml): 50 IV fluids (ml): 400 Urine output (ml): 100 Pathology: other (Cervix and uterus) Condition: stable Disposition: PACU Operative Findings: Normal-appearing tubes and ovaries bilaterally. Reasonably good vaginal vault suspension. No obvious cystocele or rectocele. Description of Procedure: Patient is brought to the operating suite after spinal with Duramorph is placed. She is put in the dorsal lithotomy position after general anesthetic is administered without difficulty. Antibiotics are given. The appropriate janet eout is performed to assure proper patient and procedural identification. Urine hCG is negative. The cervix, vagina, perineal bodies are all prepped and draped in usual sterile fashion. Catheter is used to drain approximately 100 mL of clear yellow urine. Weighted speculum was placed into the vagina. Anterior lip of the cervix is grasped with a double-tooth tenaculum. The cervix is injected circumferentially with a dilute Pitressin solution. A [place] blade scalpel is used to incise the tissue circumferentially with a V like positioning at 6:00. Sponge rolled finger is used to sweep the mucosa from the underlying fascial plane. At all times care is taken to keep the mucosa swept well away, to avoid bladder or ureteral injury. Peritoneum is entered at 6:00 with a Metzenbaum scissor and suture tied with 2-0 Vicryl, held with a hemostat. The large billed speculum is now placed into the peritoneal cavity. The right uterosacral cardinal ligament is identified, clamped cut and suture ligated. It is held with a hemostat laterally. Same procedure is carried out contralaterally. Metzenbaum scissors are used and the uterine vasculature is skeletonized. It is clamped cut and suture ligated. Please note that 0 Vicryl sutures used for the entire remaining portion of the procedure. 2 additional pedicles are taken superior to the vessels. Anterior peritoneum is entered gently with a Metzenbaum. The uterus is "walked out" posteriorly. Remaining pedicles are secured with Pillo clamps. The uterus and cervix are removed and sent to pathology for evaluation. 0 Vicryl sutures used across these pedicles and secure Ava stitch, they are flashed, retied for excellent hemostasis. Sponge stick is then used to visualize the ovaries bilaterally and they are certainly within normal limits to inspection and therefore left in situ per the patient's wishes. All pedicles are clean and dry. The speculum was switched to the shallow weighted speculum. The 2-0 Vicryl suture is brought around circumferentially to close the peritoneal cavity. The uterosacral cardinal ligaments are brought across to incorporate the opposite ligament and vaginal mucosa. 3 additional [id number] sutures are used on the vaginal mucosa to close the vaginal cough. The vagina is packed with a 1 inch iodophor gauze with basic tracing. Jordan is noted to be draining clear urine. All sponge needle and enhancement counts are correct at the end of the procedure. Patient is brought back to the recovery room in stable condition with a blood pressure of 90/60 and a pulse of 70. She is given Toradol prior to leaving the operative suite.
[2020-04-15] MEDS ORDERED: NALOXONE 0.4 MG/ML 1 ML VIAL IV PRN (12:14)
[2020-04-15] MEDS: HYDROmorphone 0.5 MG/0.5 ML SYRINGE IVP ONE ×2 (12:48→12:55)
[2020-04-15] MEDS ORDERED: LORazepam 1 MG TAB PO STA (18:40)
[2020-04-15] MEDS: KETOROLAC 15 MG/ML 1 ML VIAL IVP PRN (20:09)
[2020-04-16] MEDS: KETOROLAC 15 MG/ML 1 ML VIAL IVP PRN (04:08)
[2020-04-16 06:34] VITALS: TEMP 98.2
[2020-04-16 07:31] VITALS: BP 121/77; PULSE 81; RESP 16
--- NOTE | 2020-04-16 08:54 | P.DS ---
Providers Date of admission: 04/15/20 Expected date of discharge: 04/16/20 Attending physician: Kim Gillis Primary care physician: Sumeet [facility] Hospital Course: This is a 49-year-old white female who presented with a symptomatic grade 3 u terine prolapse. After thorough discussion she elected to proceed with vaginal hysterectomy. She underwent vaginal hysterectomy under my care yesterday, with a spinal with Duramorph placed preoperatively. Ovaries appeared normal to inspection and were left in situ per her wishes. Estimated blood loss 50 mL's. Surgery was unremarkable, please see dictated operative note for details. Vagina packed with iodoform gauze, Jordan catheter placed. This morning the iodoform gauze in the Jordan catheter has been discontinued. Patient has no vaginal bleeding. She is passing flatus. She is urinating spontaneously. She denies any complaints of pain. Vital signs are stable and she is afebrile. She slept well last night with the aid of Ativan. She has eaten a regular breakfast tray and complains of no nausea. She is judged to be in good condition for discharge home at this time. Patient will follow-up with me in the office in 2 weeks. I have reminded her no intercourse, tampons or douching. She will use [id number] Advil or Aleve, or Motrin as needed for pain. I've asked her to call me with any fevers shakes or chills, foul smelling or copious lochia, with the passage of large blood clots, with any pain not alleviated by [id number]-[id number] products, or indeed with any concerns. I'm also asking her to use Metamucil every day in 6-8 ounces of "water to aid in regular bowel movement. Assessment: Doing well postoperative day #1 Patient Condition at Discharge: Good Plan - Discharge Summary New Discharge Prescriptions: No Action polyethylene glycoL 3350 [Miralax] 17 gram PO DAILY Omeprazole 20 mg PO DAILY PRN PRN Reason: Indigestion Docusate [Colace] 100 mg PO ONCE PRN PRN Reason: Congestion Discharge Medication List polyethylene glycoL 3350 [Miralax] 17 gram PO DAILY 06/23/18 [History] Docusate [Colace] 100 mg PO ONCE PRN 04/15/20 [History] Omeprazole 20 mg PO DAILY PRN 04/15/20 [History] Follow up Appointment(s)/Referral(s): Kim Gillis MD [STAFF PHYSICIAN] - 2 Weeks
--- NOTE | 2020-04-16 09:04 | P.PN ---
Progress Note - Text Progress Note Date: 04/16/20 (595) Anesthesia Postop day 1 Subjective: Status Post vaginal hysterectomy with Duramorph. Patient seen and examined. Doing well without complaint. VAS 0. No nausea or vomiting. Mild pruritus tolerable.. Afebrile. Gross lower extremity strength intact. + Ambulation. Without apparent anesthetic complications. Objective: Vital signs reviewed Heart: Regular Rate Lungs: Good chest excursion Abdomen: Appears nondistended Assessment: Status post general hysterectomy with Duramorph postop day 1 Plan: Continue current care with your medical management.
[2020-04-16] MEDS ORDERED: ACETAMINOPHEN TAB 325 MG TAB PO PRN (12:07)
== END 2020-04-16 11:45 | disposition home or self-care (01) ==
LOC: OR 09:21 → 4FBP 12:55 → OR 04-16 11:45
PROVIDERS: ATTEND Obstetrics & Gynecology
DX: N81.3 Complete uterovaginal prolapse (principal); N80.0 Endometriosis of uterus; F42.9 Obsessive-compulsive disorder, unspecified; F41.9 Anxiety disorder, unspecified; K21.9 Gastro-esophageal reflux disease without esophagitis; Z79.899 Other long term (current) drug therapy; Z98.891 History of uterine scar from previous surgery; K58.9 Irritable bowel syndrome, unspecified; Z87.11 Personal history of peptic ulcer disease; E07.9 Disorder of thyroid, unspecified; I10 Essential (primary) hypertension; Z82.49 Family history of ischemic heart disease and other diseases of the circulatory system; Z80.3 Family history of malignant neoplasm of breast; Z82.3 Family history of stroke; Z80.0 Family history of malignant neoplasm of digestive organs; Z80.6 Family history of leukemia; Z81.8 Family history of other mental and behavioral disorders; Z87.891 Personal history of nicotine dependence
CPT/HCPCS: 58260; 93005; 81025; 86900; 86901; 86850; 88307; J2250; J1100; J2710; J2765; J0690; J2405; J2001; J3010; J1170 ×2; J1885 ×2; J2704

== ENCOUNTER → 2020-08-31 | Outpatient (CLI) | payer BC ==
--- NOTE | 2020-09-01 07:28 | CT ---
EXAMINATION TYPE: CT abdomen pelvis w con DATE OF EXAM: 08/31/2020 COMPARISON: 06/23/2018 HISTORY: LLQ pain CT DLP: 1235 mGycm CONTRAST: CT scan of the abdomen and pelvis is performed with Oral Contrast and with IV Contrast, patient injec kori with 100 mL of Isovue 300. FINDINGS: LUNG BASES-: No visible nodule. No infiltrate. LIVER/GB: No calcified gallstones. No space occupying hepatic lesion. Biliary tree is of normal ca liber. There is mild hepatic steatosis. PANCREAS: No inflammation. No distinct mass. SPLEEN: No splenic enlargement. No lesion seen. ADRENALS: Nodule left adrenal gland measures 1.8 cm and likely reflects an adenoma. No thickening. KIDNEYS/BLADDER: No hydronephrosis. Nonobstructing 4 mm calculus lower pole left kidney. Exophytic 1 cm cyst midpole left kidney. Urinary bladder grossly unremarkable. BOWEL: Normal appendix. Normal bowel caliber. No inflammation. GENITAL ORGANS: 2 cm right ovarian cyst. There is been prior hysterectomy. No left adnexal mass appre ciated. LYMPH NODES: No greater than 1cm abdominal or pelvic lymph nodes are appreciated. AORTA: No significant abnormality. OSSEOUS STRUCTURES: No significant abnormality is seen. OTHER: No significant additional abnormality is seen. IMPRESSION: 1. Fatty liver. 2. Stable adrenal adenoma. 3. Nonobstructing calculus lower pole left kidney.
== END | disposition home or self-care (01) ==
LOC: RADCTMAIN 15:34
PROVIDERS: ATTEND Family Medicine
DX: N20.0 Calculus of kidney (principal); D35.02 Benign neoplasm of left adrenal gland; K76.0 Fatty (change of) liver, not elsewhere classified
CPT/HCPCS: 74177; Q9967

== ENCOUNTER 2020-11-03 09:58 | Day surgery (SDC) | payer BC ==
[2020-10-31 11:38] VITALS: BMI 28.3
[~2020-11-03 09:58] MED LIST changes: -DEXAMETHASONE SOD PHOSPHATE 4 MG/ML 1 ML VIAL IV ONE; +LACTATED RINGERS 1,000 ML IV SCH; -LIDOCAINE 1% (10MG/ML) FOR IV START INTRADERMA PRN; -ONDANSETRON 4 MG/2 ML VIAL IVP ONE
[2020-11-03 10:26] VITALS: RESP 16; TEMP 98.4
[2020-11-03] MEDS ORDERED: LIDOCAINE 1% (10MG/ML) FOR IV START SQ ONE (10:36)
[2020-11-03] MEDS ORDERED: PROPOFOL 10 MG/ML 20 ML VIAL IV ONE (11:14)
[2020-11-03] MEDS ORDERED: LIDOCAINE 1% INJ 10MG/ML (20 ML MDV) ONE (11:14)
--- NOTE | 2020-11-03 12:00 | P.PCN ---
Date of Procedure: 11/03/20 Description of Procedure: Brief history: Patient is a pleasant 50-year-old female presenting for outpatient EGD and colonoscopy for evaluation of symptoms of right upper quadrant pain and screening for allowing me neoplasm colon. Patient has had intermittent right upper quadrant pain usually worsens postprandial in the right flank into mid back she describes it as burning in quality and sometimes stabbing. She previously underwent EGD and colonoscopy about 15 years ago and was told of diverticulosis and H. pylori. She also had an EGD in 2010 with findings of peptic ulcer disease as per report by the patient. Procedure performed: Esophagogastroduodenoscopy with biopsies Colonoscopy with polypectomy Estimated blood loss: Minimal. Preoperative diagnosis: Upper quadrant pain, history of peptic ulcer disease, screening for malignant neoplasm colon, patient's last colonoscopy 12-15 years ago by report Anesthesia: MAC Procedure: After informed consent was obtained from the patient was brought into the endoscopy unit and IV sedation was administered by anesthesia under continuous monitoring. Initially upper endoscopy was done. The Olympus GF 190 video endoscope was inserted into the mouth and esophagus intubated without any difficulty and was gradually advanced into the stomach and duodenum and carefully examined. The bulb and second part of the duodenum appeared normal, with biopsies taken to rule out celiac sprue. The scope was then withdrawn into the stomach adequately insufflated with air and upon careful examination the antrum and body, cardia and fundus appeared normal and biopsies taken to rule out Helicobacter pylori infection. The scope was then withdrawn into the esophagus. The GE junction was located at 38 cm to the incisors. It appeared regular with no erythema erosions or ulcerations, with biopsies taken of the lower esophagus. Rest of the esophagus appeared normal. Patient tolerated the procedure well. At this time the patient continued to remain sedation. Initial digital rectal examination was normal. Olympus CF 190 video colonoscope was then inserted into the rectum and gradually advanced to the cecum without any difficulty. Careful examination was performed as the scope was gradually being withdrawn. The prep was excellent. The cecum, ascending colon, transverse colon, descending colon, sigmoid colon and rectum appeared normal. A few scattered diverticula noted in the sigmoid colon. 2 diminutive polyps measuring 1-2 mm in size removed from the hepatic flexure and sigmoid colon with cold forcep. Retroflexion was performed in the rectum and no lesions were noted, with internal hemorrhoids seen. Patient tolerated the procedure well. Impression: 1. Normal upper endoscopy with no severe irritation, ulcers or other findings to explain patient's symptoms of right upper quadrant pain. Biopsies taken of the duodenum, antrum body and lower esophagus. 2. 2 diminutive polyps removed with cold forcep polypectomy from the hepatic flexure and sigmoid colon. Mild sigmoid diverticulosis. Internal hemorrhoids. Recommendations: Findings of this examination were discussed with the patient as well as her family. Okay to resume diet. Okay to resume medications. Await pathology from biopsies. Follow up in the GI clinic as scheduled. Recommend repeat colonoscopy in 7 years for colon polyp pending pathology from polypectomy.
[2020-11-03 12:25] VITALS: BP 140/86; PULSE 70
== END 2020-11-03 12:32 | disposition home or self-care (01) ==
LOC: ORWHC2ENDO 09:58
PROVIDERS: ATTEND Internal Medicine
DX: Z12.11 Encounter for screening for malignant neoplasm of colon (principal); D12.3 Benign neoplasm of transverse colon; D12.5 Benign neoplasm of sigmoid colon; K29.50 Unspecified chronic gastritis without bleeding; D72.820 Lymphocytosis (symptomatic); K57.30 Diverticulosis of large intestine without perforation or abscess without bleeding; K21.9 Gastro-esophageal reflux disease without esophagitis; K64.8 Other hemorrhoids; Z87.11 Personal history of peptic ulcer disease; Z98.51 Tubal ligation status; Z98.890 Other specified postprocedural states; Z87.891 Personal history of nicotine dependence; Z79.899 Other long term (current) drug therapy
CPT/HCPCS: 88305; 45380; 43239; J2001; J2704; 45385

== ENCOUNTER → 2020-12-16 | Outpatient (CLI) | payer BC ==
[2020-12-16 16:50] LABS: Gliadin AB IgA, Deaminated POSITIVE (NEGATIVE); Gliadin AB IgG, Deaminated NEGATIVE (NEGATIVE)
== END | disposition home or self-care (01) ==
LOC: LABWHC1 09:55
PROVIDERS: ATTEND Physician Assistant
DX: K29.80 Duodenitis without bleeding (principal)
CPT/HCPCS: 36415; 83516

== ENCOUNTER → 2020-12-22 | Outpatient (CLI) | payer BC ==
--- NOTE | 2020-12-22 12:51 | US ---
EXAMINATION TYPE: US gallbladder DATE OF EXAM: 12/22/2020 COMPARISON: Correlation CT 08/31/2020 CLINICAL HISTORY: 50-year-old female R10.11 Right Upper Quad Pain. Intermittent RUQ pain x 15 to 20 y ears. EXAM MEASUREMENTS: Liver Length: 15.0 cm Gallbladder Wall: 0.1 cm CBD: 0.5 cm Right Kidney: 10.9 x 5.0 x 4.0 cm Pancreas: Suboptimal visualization of the pancreatic tail due to shadowing from bowel gas. Visualized portions appear within normal limits. Liver: Slight increased echogenicity. Focal geographic area of hypoechoic echogenicity measuring 4.4 x 3.4 x 1.6 cm along the gallbladder fossa. No other focal lesion seen. Gallbladder: wnl Evidence for sonographic Mario's sign: no CBD: wnl Right Kidney: No hydronephrosis. IMPRESSION: 1. Mild to moderate hepatic steatosis. There is a geographic area of fatty sparing along the gallblad richelle fossa. 2. No gallstones or biliary ductal dilatation.
== END | disposition home or self-care (01) ==
LOC: RADUSWWP 11:13
PROVIDERS: ATTEND Internal Medicine Gastroenterology
DX: K76.0 Fatty (change of) liver, not elsewhere classified (principal); K82.8 Other specified diseases of gallbladder
CPT/HCPCS: 76705